=== PATIENT | female | born 1965 | race Caucasian/White ===

== ENCOUNTER 2020-04-02 04:50 | Day surgery (SDC) | payer MEDICAID ==
[~2020-04-02] VITALS: Ht 165.1 cm; Wt 59.0 kg
[~2020-04-02 04:50] MED LIST: CYCLOPENTOLATE HCL 1% 2 ML OPHTHALMIC SOLUTION ONE; KETOROLAC TROMETHAMINE 0.5% 5 ML OPHTHALMIC SOLUTION ONE; MOXIFLOXACIN HCL 0.5% 3 ML OPHTHALMIC SOLUTION ONE; PHENYLEPHRINE HCL 2.5% 2 ML OPHTHALMIC SOLUTION ONE; RINGERS SOLUTION,LACTATED 500 ML IV ONE; TETRACAINE HCL/PF 0.5% 4 ML OPHTHALMIC SOLUTION ONE; TROPICAMIDE 1% 2 ML OPHTHALMIC SOLUTION ONE
[2020-04-02] MEDS ORDERED: RINGERS SOLUTION,LACTATED 500 ML IV ONE (05:00)
[2020-04-02] MEDS: CYCLOPENTOLATE HCL 1% 2 ML OPHTHALMIC SOLUTION OS SCH ×3 (05:36→05:52)
[2020-04-02] MEDS: KETOROLAC TROMETHAMINE 0.5% 5 ML OPHTHALMIC SOLUTION OS SCH ×3 (05:37→05:51)
[2020-04-02] MEDS: MOXIFLOXACIN HCL 0.5% 3 ML OPHTHALMIC SOLUTION OS SCH ×3 (05:37→05:51)
[2020-04-02] MEDS: PHENYLEPHRINE HCL 2.5% 2 ML OPHTHALMIC SOLUTION OS SCH ×3 (05:37→05:52)
[2020-04-02] MEDS: TROPICAMIDE 1% 2 ML OPHTHALMIC SOLUTION OS SCH ×3 (05:37→05:51)
[2020-04-02 05:47] LABS: GLUCOMETER DEV NAME(LOC) SDS.; GLUCOSE,POINT OF CARE 165 MG/DL (70-110)
[2020-04-02] MEDS ORDERED: INSLAN SQ (05:49)
[2020-04-02] MEDS ORDERED: GABA-1181 PO (05:49)
[2020-04-02] MEDS ORDERED: LISI-661 PO (05:49)
[2020-04-02] MEDS ORDERED: SIMV-261 PO (05:49)
[2020-04-02] MEDS ORDERED: EPINEPHrine 1:1,000 [1 MG/ML] AMP ONE (05:54)
[2020-04-02] MEDS ORDERED: LIDOCAINE/PF 1% 2 ML VIAL ONE (05:54)
[2020-04-02] MEDS ORDERED: POVIDONE-IODINE 10% 15 ML SOLUTION UD ONE (05:55)
[2020-04-02] MEDS ORDERED: BALANCED SALT 15 ML OPHTHALMIC IRRIG.SOLN ONE (05:55)
[2020-04-02] MEDS ORDERED: TETRACAINE HCL/PF 0.5% 4 ML OPHTHALMIC SOLUTION OS ONE (06:00)
[2020-04-02] MEDS ORDERED: CANA1TAB4 PO (06:09)
[2020-04-02] MEDS ORDERED: NEOMYCIN/POLYMYXIN B/DEXAMETH 3.5 GM OPHTHALMIC OINTMENT ONE (06:11)
[2020-04-02] MEDS ORDERED: PrednisoLONE ACETATE 1% 5 ML OPHTHALMIC SUSPENSION ONE ×2 (06:13→17:01)
[2020-04-02] MEDS ORDERED: MIDAZOLAM HCL 2 MG/2 ML VIAL IVP ONE (12:00)
[2020-04-02] MEDS ORDERED: FentaNYL CITRATE-PF 100 MCG/2 ML VIAL IVP ONE (12:00)
[2020-04-02] MEDS ORDERED: HYALURONATE SODIUM 12 MG/ML 0.8 ML SYRINGE IO ONE (17:01)
== END 2020-04-02 08:15 | disposition home or self-care (01) ==
LOC: SURGERY 04:50
PROVIDERS: ATTEND Ophthalmology
DX: E10.36 Type 1 diabetes mellitus with diabetic cataract (principal); H26.8 Other specified cataract; E10.39 Type 1 diabetes mellitus with other diabetic ophthalmic complication; H40.9 Unspecified glaucoma; Z20.828 Contact with and (suspected) exposure to other viral communicable diseases; Z79.899 Other long term (current) drug therapy
CPT/HCPCS: 66984; 82962; 87635; 93005; J0171; J3490 ×2; J7120; V2632; J2250; J3010